=== PATIENT | female | born 1975 | race Caucasian/White ===

== ENCOUNTER 2024-08-14 01:20 | Emergency (ER) | payer OTHER, SELFPAY ==
[2024-08-14 01:20] VITALS: BMI 22.3
[2024-08-14 01:23] VITALS: BP 90/60
[2024-08-14 01:36] VITALS: BP 94/78
--- NOTE | 2024-08-14 01:36 | ED.GENMED ---
History of Present Illness
<Usha Whelan, GRAPHIC ARTIST - Last Filed: 08/15/24 10:48>
General
Chief Complaint: Fall
Source: patient and significant other
Exam Limitations: clinical condition
Time Seen by Provider: 08/14/24 01:32
Nursing documentation reviewed up to this point in time: agreed with
History of Present Illness
History of Present Illness:
49 yo female with no significant PMHX here for fall down 8 steps, laceration back of head, reported LOC. Boyfriend with her states they were out to dinner, had 3-4 glasses of wine, they were getting ready to go to bed, he turned the TV off, heard 'a
thump then bump, bump, bump' and found pt laying at bottom of steps with hole in wall and bleeding from back of head. States she was out for 'a couple of minutes' and finally came to a little when I sat her up.' He helped her into the car and his
daughter drove them here.
Pt does not remember the fall.
She denies taking any recreational drugs.
Past History
<Usha Whelan, GRAPHIC ARTIST - Last Filed: 08/15/24 10:48>
Past History
ED Past Medical History: None
ED Past Surgical History: Gynecological
Social History
Tobacco: Non-smoker
Alcohol: Occasional
Personal: Single
Review of Systems
<Usha Whelan, GRAPHIC ARTIST - Last Filed: 08/15/24 10:48>
Review of Systems
Allergies reviewed?: Yes
All Other Systems: ROS reviewed and negative except as documented in HPI and ROS
Constitutional: Denies fever
Respiratory: Denies trouble breathing
Cardiac: Reports syncope; Denies chest pain
ABD/GI: Denies abdominal pain, nausea or vomiting
: Denies incontinence
Musculoskeletal: Reports neck pain and other (left elbow hurts); Denies back pain
Skin: Reports other (cut back of head)
Neurological: Denies dizzy, headache, weakness or numbness
Phy Exam
<Usha Whelan GRAPHIC ARTIST - Last Filed: 08/15/24 10:48>
Physical Exam
Physical Exam:
GENERAL: No acute distress. A&Ox3.
CONSTITUTIONAL: Afebrile.
EYES: clear, conjunctivae normal, PERRL, pupils 2 mm, brisk reaction
ENMT: moist mucus membranes, Pharynx nl
RESPIRATORY: Regular respirations, nonlabored, lungs clear.
CARDIOVASCULAR: Regular rate and rhythm, no murmurs, no rubs.
GI: Soft, nontender, normal BS
MUSCULOSKELETAL: Moves with ease. Well perfused.
SKIN: Warm, dry, pink. Laceration back of head
PSYCH: Tearful mood and affect. States 'it's been a rough month.' Well kept, interactive and appropriate
NEUROLOGIC: Drowsy, easily arouses and is oriented x 3 and tearful. Speech mildly slurred. No focal neurological deficits, strength equal throughout.
Course
<Usha Whelan, GRAPHIC ARTIST - Last Filed: 08/15/24 10:48>
Orders/Labs/Results
Orders:
Orders
08/14/24 01:34
CT Cervical Spine W/o Iv Contr Urgent
Comment:
Reason For Exam: fall
CT Head W/o Iv Contrast Urgent
Comment:
Reason For Exam: fall
08/14/24 01:42
Alcohol Urgent
Complete Blood Count/With Diff Urgent
Comprehensive Metabolic Panel Urgent
08/14/24 02:08
Elbow, Left [CR Elbow - Left Min 3 Views ] Urgent
Comment:
Reason For Exam: pain after fall
08/14/24 03:04
Ketorolac [Toradol] 30 mg .ROUTE .STK-MED ONE
08/14/24 03:06
Ketorolac [Toradol] 30 mg IV NOW STA
08/14/24 03:16
Sling Left-Treatment ONCE
Abnormal Lab Results
08/14/24
01:42
MCH 31.9 H pg
(27.0-31.0)
MPV 11.2 H fL
(7.4-10.4)
Sodium 147 H mmol/L
(135-145)
08/14/24 01:42
08/14/24 01:42
Vital Signs
Initial and Last Documented VS:
Initial Vital Signs
Pulse Resp BP Pulse Ox
72 14 90/60 100
08/14/24 01:23 08/14/24 01:23 08/14/24 01:23 08/14/24 01:23
Last Documented Vital Signs
Pulse Resp BP Pulse Ox
70 16 112/74 98
08/14/24 02:00 08/14/24 02:00 08/14/24 02:34 08/14/24 02:45
<Eunice Crandall, DO - Last Filed: 08/14/24 03:23>
Orders/Labs/Results
Orders:
Orders
08/14/24 01:34
CT Cervical Spine W/o Iv Contr Urgent
Comment:
Reason For Exam: fall
CT Head W/o Iv Contrast Urgent
Comment:
Reason For Exam: fall
08/14/24 01:42
Alcohol Urgent
Complete Blood Count/With Diff Urgent
Comprehensive Metabolic Panel Urgent
08/14/24 02:08
Elbow, Left [CR Elbow - Left Min 3 Views ] Urgent
Comment:
Reason For Exam: pain after fall
08/14/24 03:04
Ketorolac [Toradol] 30 mg .ROUTE .STK-MED ONE
08/14/24 03:06
Ketorolac [Toradol] 30 mg IV NOW STA
08/14/24 03:16
Sling Left-Treatment ONCE
Abnormal Lab Results
08/14/24
01:42
MCH 31.9 H pg
(27.0-31.0)
MPV 11.2 H fL
(7.4-10.4)
Sodium 147 H mmol/L
(135-145)
08/14/24 01:42
08/14/24 01:42
Vital Signs
Initial and Last Documented VS:
Initial Vital Signs
Pulse Resp BP Pulse Ox
72 14 90/60 100
08/14/24 01:23 08/14/24 01:23 08/14/24 01:23 08/14/24 01:23
Last Documented Vital Signs
Pulse Resp BP Pulse Ox
70 16 112/74 98
08/14/24 02:00 08/14/24 02:00 08/14/24 02:34 08/14/24 02:45
Procedures
<Usha Whelan, GRAPHIC ARTIST - Last Filed: 08/15/24 10:48>
Laceration Closure
occipital scalp:
Status of Wound: clean
Size of Wound in cm: 1
Description of Wound Edges: sharp
Preparation: cleaned with saline
Revision/Debridement: routine- no revision
Type of Closure: Dermabond-skin glue
<Usha Whelan GRAPHIC ARTIST - Last Filed: 08/15/24 10:48>
MDM/Problems Addressed
Differential Diagnosis Includes:
alcohol intoxication, brain bleed, skull fracture
MDM/Problems Addressed:
49 yo female with no significant PMHX here for fall down 8 steps, laceration back of head, reported LOC. Boyfriend with her states they were out to dinner, had 3-4 glasses of wine, they were getting ready to go to bed, he turned the TV off, heard 'a
thump then bump, bump, bump' and found pt laying at bottom of steps with hole in wall and bleeding from back of head. States she was out for 'a couple of minutes' and finally came to a little when I sat her up.' He helped her into the car and his
daughter drove them here.
Pt does not remember the fall.
She denies taking any recreational drugs.
2:15 AM
CBC normal, CMP normal
Alcohol 225
2:45 AM:
Head and neck CT reports read: No acute abnormalities.
Patient is awake, as soon as she can drink and hold fluids down, ambulate steadily she can be discharged to the care of her boyfriend who is at her bedside.
Case discussed with Dr. Crandall who will assume care until patient leaves.
<Usha Whelan, GRAPHIC ARTIST - Last Filed: 08/15/24 10:48>
*Critical Care Note
Total Time (30-74mins, 75-104mins- exclusive of procedures): Not Applicable
ED Attending Note
<Usha Whelan, GRAPHIC ARTIST - Last Filed: 08/15/24 10:48>
-
Portions of this chart may have been created with voice recognition software.� Occasional wrong word or��sound alike� substitutions may have occurred due to the inherent limitations of voice recognition software.
<Eunice Crandall, DO - Last Filed: 08/14/24 03:23>
ED Attending Note
Patient seen and examined by attending physician: Yes
I performed a history and physical exam of patient and discussed management with resident, I reviewed resident's note and agree with documented findings and plan of care.: Yes
ED Attending Note:
Pt presents after fall down steps.
post scalp laceration
left elbow pain
admits to ETOH consumption tonight but denies daily use. ETOH elevated but pt remains awake and alert, ambulatory with steady unaided gait
no focal neuro deficits
moderate pain left elbow
CT head, c-spine (-)
Left elbow xray shows no evidence of fx however (+)posterior fat pad sign. concern for occult fx.
will place in arm sling and refer to ortho for fu
Motrin Rx for pain
Discharge Plan
Departure
Patient Disposition: Home (Routine Discharge)
Date of Disposition: 08/14/24
Time of Disposition: 03:17
Patient with high blood pressure during this ER visit?: No
Condition: Fair
Discharge Problem:
Fall from slip, trip, or stumble, Fall down stairs, Alcohol intoxication, Laceration of scalp, Contusion of elbow, left
Instructions: Laceration Repair With Glue (DC), Head Injury in Adults (DC), How to Use a Shoulder Sling ED
Prescriptions:
New
ibuprofen 600 mg tablet
600 mg PO Q6H PRN (Reason: fever or pain) Qty: 30 0RF
No Action
duloxetine [Cymbalta] 20 mg Capsule,Delayed Release(Dr/Ec)
20 mg PO Daily
lisdexamfetamine [Vyvanse] 60 mg Capsule
60 mg PO DAILY
naltrexone 4.5 mg Capsule
4.5 mg PO HS
Referrals:
Your, Doctor [Other] - As needed
UNKNOWN - PT DOES,NOT KNOW [Family Provider] -
Bola Schwartz MD [Active] - Call in 1-3 days for appt
Activity Restrictions/Additional Instructions:
As we discussed return here immediately for worrisome signs of head injury: headache getting worse and worse despite Tylenol, confusion, vomiting repeatedly
The wound on your scalp was glued, you may wash your hair tomorrow, just don't rub the glued area. The glue will slough off within the next 2 weeks
Interventions
Interventions:
*Risk Screen - Suicide Last Done: 08/14/24 01:23
*General Assessment Last Done: 08/14/24 01:23
*Neglect/Abuse Screening Last Done: 08/14/24 01:23
*Nursing Disposition Last Done: 08/14/24 03:35
ED-Musculoskeletal Assessment Last Done: 08/14/24 01:32
ED- Neurological Assessment Last Done: 08/14/24 01:32
ED-Skin Assessment Last Done: 08/14/24 01:32
Discharge Date and Time
Discharge Date/Time: 08/14/24 03:36
Print Language: BARBADIAN
[2024-08-14 01:47] LABS: % Basophils 0.5 % (0-2); % Eosinophils 0.9 % (0-6); % Immature Granulocytes 0.1 % (0-0.5); % Lymphocytes 40.1 % (20.5-51.1); % Monocytes 7.6 % (1.7-9.3); % Neutrophils 50.8 % (42.2-75.2); Absolute Eosinophils 0.1 10^3/uL (0-0.7); Absolute Monocytes 0.6 10^3/uL (0.1-0.6); Absolute Neutrophils 3.8 10^3/uL (1.4-6.5); Hemoglobin 14.5 g/dL (12.0-16.0); Mean Corp Hgb Conc. 34.5 g/dL (33.0-37.0); Mean Corpuscular Hgb 31.9 pg (27.0-31.0); Mean Corpuscular Volume 92.3 fL (81.0-99.0); Mean Platelet Volume 11.2 fL (7.4-10.4); Nucleated Red Blood Cells % 0 %; Platelet Count 156 10^3/uL (130-400); Red Blood Cell Count 4.55 10^6/uL (4.20-5.40); Red Cell Dist. Width 12.5 % (11.5-14.5); White Blood Cell Count 7.4 10^3/uL (4.8-10.8)
[2024-08-14 02:00] LABS: ALT (SGPT) 25 U/L (0-35); AST (SGOT) 32 U/L (14-36); Albumin 4.7 g/dl (3.5-5.0); Alcohol 225 mg/dl; Alkaline Phosphatase 50 U/L (38-126); Blood Urea Nitrogen 14 mg/dl (7-17); Calcium 9.6 mg/dl (8.4-10.2); Carbon Dioxide 26 mmol/L (22-30); Chloride 107 mmol/L (98-107); Estimated Creatinine Clearance 79 ml/min; Glucose 94 mg/dl (70-99); Potassium 3.7 mmol/L (3.5-5.1); Sodium 147 mmol/L (135-145); Total Bilirubin 0.8 mg/dl (0.2-1.3); Total Protein 7.1 g/dl (6.3-8.2); eGFR > 60.00
[2024-08-14 02:34] VITALS: BP 112/74
[2024-08-14] MEDS: TORADOL 30 MG IV (03:06)
== END 2024-08-14 03:36 | disposition home or self-care (01) ==
LOC: EMR 01:20
PROVIDERS: Registered Nurse; EMERGENCY PHYSICIAN Emergency Medicine
DX: S01.01XA Laceration without foreign body of scalp, initial encounter (principal); S50.02XA Contusion of left elbow, initial encounter; F10.129 Alcohol abuse with intoxication, unspecified; W10.9XXA Fall (on) (from) unspecified stairs and steps, initial encounter; Y90.9 Presence of alcohol in blood, level not specified
CPT/HCPCS: 99284; 12001; 96374; 70450; 72125; 73080; 80053; 82077; 85025